=== PATIENT | female | born 1955 | race Two or more races ===

== ENCOUNTER 2025-02-21 21:19 | Emergency (ER) | payer MEDICAID, OTHER ==
[~2025-02-21] VITALS: Ht 152.4 cm; Wt 103.1 kg
[2025-02-21] MEDS: OXYMETAZOLINE HCL 0.05 % NASAL SPRAY 15ML EACHNOSTRI ONE (21:54)
[2025-02-21] MEDS: cloNIDine HCL 0.1 MG TAB PO ONE (21:54)
[2025-02-21] MEDS: cloNIDine HCL 0.1 MG TAB ONE (21:55)
--- NOTE | 2025-02-21 22:24 | ED.PDOC ---
Epistaxis- HPI HPI Comments C/C of right nare epistaxis starting at 2100. Pt states this is the first time it has occurred. Bleeding minimal at this time. Denies thinners. BP 194/97, HR 120. Denies CP, SOB, N/V/D. Pt states she did not take her Losartan today. Chief Complaint: Nose Bleed Time Seen by MD: 21:41 Reviewed Notes: Nurses Notes, Medications, Allergies Allergies: Coded Allergies: NO KNOWN ALLERGIES (Unverified , 02/21/25) Home Meds Active Scripts Verapamil Hcl (Verapamil Hcl Er) 240 Mg Cap, 1 CAP PO DAILY for 14 Days, #14 CAP Prov:JOSHUA RODRIGUEZ NECK CUTTER 02/22/25 Losartan Potassium (Losartan Potassium) 50 Mg Tab, 1 TAB PO DAILY for 14 Days, #14 TAB Prov:JOSHUA RODRIGUEZ NECK CUTTER 02/22/25 Information Source: Patient, Relative (Child) Mode of Arrival: Wheelchair Past Medical History PAST MEDICAL HISTORY: HTN Family History Family History: Reviewed,noncontributory to illness Social History Smoker: Non-Smoker Alcohol: Denies ETOH Use Drugs: Denies Drug Use Constitutional: denies: chills, diaphoresis, fatigue, fever, malaise, sweats, weakness, others EENTM: reports: others (NOSEBLEED); denies: blurred vision, double vision, ear bleeding, ear discharge, ear drainage, ear pain, ear ringing, eye pain, eye redness, hearing loss, mouth pain, mouth swelling, nasal discharge, nose bleeding, nose congestion, nose pain, photophobia, tearing, throat pain, throat swelling, voice changes Respiratory: denies: cough, hemoptysis, orthopnea, SOB at rest, shortness of b reath, SOB with excertion, stridor, wheezing, others Cardiovascular: denies: chest pain, dizzy spells, diaphoresis, Dyspnea on exertion, edema, irregular heart beat, left arm pain, lightheadedness, palpitations, PND, syncope, others Gastrointestinal: denies: abdomen distended, abdominal pain, blood streaked bowels, constipated, diarrhea, dysphagia, difficulty swallowing, hematemesis, melena, nausea, poor appetite, poor fluid intake, rectal bleeding, rectal pain, vomiting, others Genitourinary: denies: abnormal vagina bleeding, burning, dyspareunia, dysuria, flank pain, frequency, hematuria, incontinence, pain, , vagina discharge, urgency, others Neurological: denies: dizziness, fainting, headache, left sided numbness, left sided weakness, numbness, paresthesia, pre-existing deficit, right sided numbness, right sided weakness, seizure, speech problems, tingling, tremors, weakness, others Musculoskeletal: denies: back pain, gout, joint pain, joint swelling, muscle pain, muscle stiffness, neck pain, others Integumetry: denies: bruises, change in color, change in hair/nails, dryness, laceration, lesions, lumps, rash, wounds, others Allergic/Immunocompromised: denies: Difficulty Healing, Frequent Infections, Hives, Itching, others Hematologic/Lymphatic: denies: anemia, blood clots, easy bleeding, easy bruising, swollen glands, others Endocrine: denies: excessive hunger, excessive sweating, excessive thirst, excessive urination, flushing, intolerance to cold, intolerance to heat, unexplained weight gain, unexplained weight loss, others Psychiatric: denies: anxiety, bipolar disorder, depression, hopeless, panic disorder, schizophrenia, sleepless, suicidal, others Physical Exam General Appearance: No Apparent Distress, Normal HEENT: Pharynx Normal, TMs Normal Neck: Full Range of Motion, Non-Tender Respiratory: Lungs Clear, No Respiratory Distress, Normal Breath Sounds Cardiovascular: No Edema, No JVD, No Murmur, No Gallop, Normal Peripheral Pulses, Regular Rate/Rhythm, Other (NOSEBLEED POSTERIOR AND ANTERIOR BILATERAL NARES) Breast Exam: Deferred Gastrointestinal: No Organomegaly, Non Tender, No Pulsatile Mass, Normal Bowel Sounds, Soft Genitalia: Deferred Pelvic: Deferred Rectal: Deferred Extremities: Normal capillary refill, Normal inspection, Normal range of motion, Non-tender, No pedal edema Musculoskeletal : Apperance: Normal Neurologic: Alert, No Motor Deficits, Normal Affect, Normal Mood, No Sensory Deficits Cerebellar Function: Normal Reflexes: Normal Skin: Dry, Normal Color, Warm Lymphatic: No Adenopathy Was a procedure done? Was a procedure done?: Yes Sedation Sedation?: No Informed consent obtained: Yes Nasal Cautery and Pack Indicaton: Anterior epitaxis Silver nitrate: Bilateral Location of packing: Bilateral Packing: Inflatable balloon Informed consent obtained: Yes Risks/benefits/alt described: Yes Differential Diagnosis (NSB) Differential Diagnosis: Anterior Nasal Bleed, Posterior Nasal Bleed, Foreign Body, Hypertension, Coagulopathy X-Ray, Labs, Meds, VS Vital Signs Date Time Temp Pulse Resp B/P (MAP) Pulse Ox O2 Delivery O2 Flow Rate FiO2 02/22/25 00:33 Room Air* 0 21 02/22/25 00:21 98.6 96 20 115/75 (88) 94 98.6 02/21/25 23:21 97.3 102 14 165/93 (117) 94 97.3 02/21/25 21:54 194/97 02/21/25 21:33 98.2 120 18 194/97 (129) 95 98.2 Lab Test 02/21/25 22:28 Range/Units White Blood Count 9.1 4.4-10.8 10^3/uL Red Blood Count 4.75 4.0-5.20 10^6/uL Hemoglobin 13.6 12.2-16.2 g/dL Hematocrit 40.4 36.0-46.0 % Mean Corpuscular Volume 85.1 80.0-100.0 fL Mean Corpuscular Hemoglobin 28.6 28.0-32.0 pg Mean Corpuscular Hemoglobin Concent 33.6 32.0-36.0 g/dL Red Cell Distribution Width 14.7 H 11.8-14.3 % Platelet Count 334 140-450 10^3/uL Mean Platelet Volume 7.6 6.9-10.8 fL Neutrophils (%) (Auto) 61.1 37.0-80.0 % Lymphocytes (%) (Auto) 23.4 10.0-50.0 % Monocytes (%) (Auto) 11.2 0.0-12.0 % Eosinophils (%) (Auto) 3.4 0.0-7.0 % Basophils (%) (Auto) 0.9 0.0-2.0 % Neutrophils # (Auto) 5.5 1.6-8.6 10 ^3/uL Lymphocytes # (Auto) 2.1 0.4-5.4 10 ^3/uL Monocytes # (Auto) 1.0 0-1.3 10 ^3/uL Eosinophils # (Auto) 0.3 0-0.8 10 ^3/uL Basophils # (Auto) 0.1 0-0.2 10 ^3/uL Nucleated Red Blood Cells 0.2 % Prothrombin Time 10.6 9.3-11.8 sec Prothrombin Time INR 1.00 0.9-1.15 Activated Partial Thromboplast Time 27.0 24.5-34.5 SEC Sodium Level 143 136-145 mmol/L Potassium Level 3.2 L 3.5-5.1 mmol/L Chloride Level 108 H 98-107 mmol/L Carbon Dioxide Level 24 20-31 mmol/L Anion Gap 11 5-15 Blood Urea Nitrogen 7 L 9-23 mg/dL Creatinine 0.84 0.550-1.02 mg/dL Glomerular Filtration Rate Calc 76 >90 mL/min BUN/Creatinine Ratio 8.3 L 10.0-20.0 Serum Glucose 112 H 74-106 mg/dL Calcium Level 8.9 8.7-10.4 mg/dL Total Bilirubin 0.3 0.2-1.0 mg/dL Aspartate Amino Transferase (AST) 32 13-40 U/L Alanine Aminotransferase (ALT) 27 7-40 U/L Alkaline Phosphatase 105 46-116 U/L Total Protein 7.1 5.7-8.2 g/dL Albumin 4.4 3.2-4.8 g/dL X-Ray, Labs, Meds, VS Comment PATIENT BLOOD PRESSURE NORMALIZED WITH CLONIDINE 0.2 MG P.O.. ADVISED TO TAKE HER MEDICATIONS PRESCRIBED. ADVISED PATIENT TO FOLLOW UP FOR BALLOON REMOVAL IN 48-72 HOURS. ER RETURN PRECAUTIONS GIVEN FOR UNCONTROLLED BLEEDING CHEST PAIN, DIFFICULTY BREATHING, SHORTNESS OF BREATH, WEAKNESS NUMBNESS, WORSE HEADACHE OF HER LIFE, SLURRED SPEECH. ADVISED TO FOLLOW UP WITH HER PCP IN 2 DAYS KEEP A BLOOD PRESSURE DIARY. SHE INDICATES UNDERSTANDING AGREES WITH DISCHARGE PLAN OF CARE. Time of 1ST Reevaluation: 22:00 Reevaluation 1ST: Unchanged Time of 2ND Reevaluation: 22:23 Reevaluation 2ND: Improved Patient Education/Counseling: Diagnosis, Treatment, Prognosis, Need For Follow Up Family Education/Counseling: Diagnosis, Treatment, Prognosis Departure 1 Departure Time of Disposition: 00:15 Impression: Primary Impression: Epistaxis Additional Impression: Hypertension Qualified Codes: I10 - Essential (primary) hypertension Disposition: 01 HOME / SELF CARE / HOMELESS Condition: Stable e-Prescriptions Verapamil Hcl (Verapamil Hcl Er) 240 Mg Cap 1 CAP PO DAILY for 14 Days, #14 CAP Prov: JOSHUA RODRIGUEZ 02/22/25 Losartan Potassium (Losartan Potassium) 50 Mg Tab 1 TAB PO DAILY for 14 Days, #14 TAB Prov: JOSHUA RODRIGUEZ 02/22/25 Discharged With: Relative (Sibling) Critical Care Note Critical Care Time?: No Stability Stability form required: JOSHUA Craig February 21, 2025 22:24
[2025-02-21 22:41] LABS: Basophils # (auto) 0.1 10 ^3/uL (0-0.2); Basophils % (auto) 0.9 % (0.0-2.0); Eosinophils # (auto) 0.3 10 ^3/uL (0-0.8); Eosinophils % (auto) 3.4 % (0.0-7.0); Hematocrit 40.4 % (36.0-46.0); Hemoglobin 13.6 g/dL (12.2-16.2); Lymphocytes # (auto) 2.1 10 ^3/uL (0.4-5.4); Lymphocytes % (auto) 23.4 % (10.0-50.0); Mean Corpuscular Hemoglobin 28.6 pg (28.0-32.0); Mean Corpuscular Hgb Conc. 33.6 g/dL (32.0-36.0); Mean Corpuscular Volume 85.1 fL (80.0-100.0); Monocytes % (auto) 11.2 % (0.0-12.0); Neutrophils # (auto) 5.5 10 ^3/uL (1.6-8.6); Neutrophils % (auto) 61.1 % (37.0-80.0); Nucleated Red Blood Cells % 0.2 %; Platelet Count (auto) 334 10^3/uL (140-450); Red Blood Cells 4.75 10^6/uL (4.0-5.20); Red Cell Distribution Width 14.7 % (11.8-14.3); White Blood Cell 9.1 10^3/uL (4.4-10.8)
[2025-02-21 22:53] LABS: Prothrombin Time 10.6 sec (9.3-11.8)
[2025-02-21 23:02] LABS: Alanine Aminotransferase 27 U/L (7-40); Albumin 4.4 g/dL (3.2-4.8); Alkaline Phosphatase 105 U/L (46-116); Anion Gap 11 (5-15); Aspartate Aminotransferase 32 U/L (13-40); BUN/Creatinine Ratio 8.3 (10.0-20.0); Calcium 8.9 mg/dL (8.7-10.4); Carbon Dioxide 24 mmol/L (20-31); Sodium 143 mmol/L (136-145); Total Protein 7.1 g/dL (5.7-8.2)
[2025-02-21 23:03] LABS: Bilirubin, Total 0.3 mg/dL (0.2-1.0); Blood Urea Nitrogen 7 mg/dL (9-23); Chloride 108 mmol/L (98-107); Glucose 112 mg/dL (74-106); Potassium 3.2 mmol/L (3.5-5.1)
[2025-02-22 00:21] VITALS: BP 115/75; PULSE 96; RESP 20; TEMP 98.6; O2SAT 94
[2025-02-22] MEDS: POTASSIUM EFFERVESENT TAB 25 MEQ GT ONE (00:23)
[2025-02-22] MEDS ORDERED: LOSA-534 PO (00:30)
[2025-02-22] MEDS ORDERED: VERA240C2 PO (00:30)
== END 2025-02-22 00:36 | disposition home or self-care (01) ==
LOC: ER 21:19
DX: R04.0 Epistaxis (principal); I10 Essential (primary) hypertension
CPT/HCPCS: 30901; 36415; 80053; 85025; 85610; 85730

== ENCOUNTER 2025-06-11 07:00 | Outpatient (CLI) | payer MEDICAID ==
[2025-06-11 07:43] LABS: Hematocrit 42.2 % (36.0-46.0); Hemoglobin 14.4 g/dL (12.2-16.2); Mean Corpuscular Hemoglobin 28.0 pg (28.0-32.0); Mean Corpuscular Volume 82.3 fL (80.0-100.0); Nucleated Red Blood Cells % 0.0 %
[2025-06-11 07:46] LABS: Alanine Aminotransferase 29 U/L (7-40); Alkaline Phosphatase 85 U/L (46-116); Calcium 9.4 mg/dL (8.7-10.4); Carbon Dioxide 23 mmol/L (20-31); Chloride 107 mmol/L (98-107); Triglycerides 84 mg/dL (< 150)
[2025-06-11 07:47] LABS: Albumin 4.6 g/dL (3.2-4.8); Anion Gap 11 (5-15); BUN/Creatinine Ratio 14.1 (10.0-20.0); Bilirubin, Total 0.5 mg/dL (0.2-1.0); Blood Urea Nitrogen 12 mg/dL (9-23); Cholesterol 154 mg/dL (< 200); Potassium 4.2 mmol/L (3.5-5.1); Sodium 141 mmol/L (136-145); Total Protein 7.6 g/dL (5.7-8.2)
[2025-06-11 07:48] LABS: Glucose 155 mg/dL (74-106); HDL Cholesterol 60 mg/dL (40-59)
== END 2025-06-11 17:00 | disposition home or self-care (01) ==
LOC: LAB 07:00
PROVIDERS: ATTEND Internal Medicine
DX: E78.5 Hyperlipidemia, unspecified (principal); E55.9 Vitamin D deficiency, unspecified; E53.8 Deficiency of other specified B group vitamins; R73.03 Prediabetes
CPT/HCPCS: 36415; 80053; 80061; 82306; 83036; 84439; 84443; 85025